=== PATIENT | female | born 1970 | race Caucasian/White ===

== ENCOUNTER 2024-06-11 09:53 | Day surgery (SDC) | payer OTHER ==
[2024-06-10 10:55] VITALS: BMI 29.8
[2024-06-11] MEDS ORDERED: Midazolam HCl 2 mg/2 ml Vial ONE (12:53)
[2024-06-11] MEDS ORDERED: Ondansetron PF 4 MG/2 ML Vial ONE (12:56)
[2024-06-11] MEDS ORDERED: Dexamethasone 4 mg/ml Vial ONE (12:56)
[2024-06-11] MEDS ORDERED: Lidocaine 1% PF 5 ML VIAL ONE (12:56)
[2024-06-11] MEDS ORDERED: PROPOFOL 20 ML ONE (12:57)
[2024-06-11] MEDS ORDERED: fentaNYL 50 mcg/mL 1 mL Vial ONE ×2 (12:57→15:02)
[2024-06-11] MEDS ORDERED: Bupivacaine PF 0.5% 30 ML VIAL ONE (13:15)
[2024-06-11] MEDS ORDERED: CEFAZOLIN 2 GM VIAL ONE (13:15)
[2024-06-11] MEDS ORDERED: PHENYLEPHRINE-NS 100 MCG/ML 10 ML SYRINGE ONE (13:26)
[2024-06-11] MEDS ORDERED: Ketorolac Tromethamine 30 MG (1 mL) VIAL ONE (14:34)
[2024-06-11] MEDS ORDERED: HYDROcodone/Acetaminophen 5/325 mg Tablet ONE (15:17)
== END 2024-06-11 15:50 | disposition home or self-care (01) ==
LOC: CSHSDC 09:53
PROVIDERS: ATTEND Podiatrist Foot & Ankle Surgery
PROC: 0SGN0JZ Fusion of Left Metatarsal-Phalangeal Joint with Synthetic Substitute, Open Approach (ICD-10-PCS; principal; 2024-06-11)
DX: M20.12 Hallux valgus (acquired), left foot (principal); M21.612 Bunion of left foot; M79.7 Fibromyalgia; E78.5 Hyperlipidemia, unspecified; F41.9 Anxiety disorder, unspecified; F32.A Depression, unspecified; K21.9 Gastro-esophageal reflux disease without esophagitis; K58.9 Irritable bowel syndrome, unspecified; Z90.49 Acquired absence of other specified parts of digestive tract; Z79.899 Other long term (current) drug therapy
CPT/HCPCS: C1713; C1769; C1776; J0665; J1100; J1885; J2250; J2405; J2704; J3010